=== PATIENT | female | born 1965 | race African-American/Black ===

== ENCOUNTER 2017-03-27 22:43 | Emergency (ER) | payer OTHER ==
[2017-03-27 22:51] VITALS: TEMP 98; BMI 40.3
--- NOTE | 2017-03-28 01:37 | PDOC ---
History of Present Illness - General History Source: Patient, Spouse Exam Limitations: No Limitations - History of Present Illness Initial Comments: 03/28/17 01:45 EDT The patient is a 51 year old female, with a significant past medical history of hypertension, diabetes, and hydronephrosis, who presents to the emergency with right leg and knee pain for approximately 2 weeks. The patient reports right leg pain is localized to the knee/thigh, and describes it as crampy in nature. The patient reports mild leg pain when sitting down, but when she gets up she reports her pain is exacerbated. She denies any associated chest pain, shortness of breath, diaphoresis, or palpitations. Patient reports mild right ear pain, but denies any fever, chills, cough, headache, or dizziness. Patient reports visiting her PCP 1 week ago, where she had bloodwork done, which only revealed elevated blood sugar, which she states typically runs high. Patient reports she is compliant with her medications. She denies any abdominal pain, nausea, vomiting, diarrhea, or constipation. She denies any dysuria, hematuria, frequency, or urgency. She denies any recent travel or sick contacts. Allergies: NKDA Past Surgical History: Cardiac Surgery Social History: Non smoker. No ETOH or recreational drug use. PCP: Dr. Miranda <Beatriz Prather - Last Filed: 03/28/17 05:27> <Nguyen Bronson - Last Filed: 03/28/17 06:47> - General Chief Complaint: Pain Stated Complaint: LEG/EAR PAIN Time Seen by Provider: 03/28/17 01:13 EDT Past History <Beatriz Prather - Last Filed: 03/28/17 05:27> - Past Medical History Anemia: No Asthma: No Cancer: No Cardiac Disorders: Yes (CHEST PAIN) CVA: No COPD: No CHF: No Dementia: No Diabetes: Yes GI Disorders: No Disorders: Yes (RT HYDRONEPHROSIS) HTN: Yes Hypercholesterolemia: No Liver Disease: No Seizures: No Thyroid Disease: No - Surgical History Cardiac Surgery: Yes - Suicide/Smoking/Psychosocial Hx Smoking History: Never smoked Hx Alcohol Use: No Drug/Substance Use Hx: No Substance Use Type: None <Nguyen Bronson - Last Filed: 03/28/17 06:47> - Past Medical History Allergies/Adverse Reactions: Allergies Allergy/AdvReac Type Severity Reaction Status Date / Time No Known Allergies Allergy Verified 03/27/17 22:50 Home Medications: Ambulatory Orders Amlodipine Besylate [Norvasc -] 10 mg PO DAILY 11/23/15 Hydrochlorothiazide [Hctz -] 50 mg PO DAILY 11/23/15 Metformin HCl [Metformin HCl ER] 1,000 mg PO BID 11/23/15 Gabapentin [Neurontin] 100 mg PO TID 03/28/17 Glipizide [Glipizide ER] 10 mg PO DAILY 03/28/17 Review of Systems - Review of Systems Able to Perform ROS?: Yes Comments:: 03/28/17 01:45 EDT GENERAL/CONSTITUTIONAL: No fever or chills. No weakness. HEAD, EYES, EARS, NOSE AND THROAT: Yes right ear pain. No change in vision. No ear discharge. No sore throat. CARDIOVASCULAR: No chest pain or shortness of breath. RESPIRATORY: No cough, wheezing, or hemoptysis. GASTROINTESTINAL: No nausea, vomiting, diarrhea or constipation. GENITOURINARY: No dysuria, frequency, or change in urination. MUSCULOSKELETAL: Yes right leg(thigh)/knee pain. No other joint or muscle swelling or pain. No neck or back pain. SKIN: No rash NEUROLOGIC: No headache, vertigo, loss of consciousness, or change in strength/ sensation. ENDOCRINE: No increased thirst. No abnormal weight change. HEMATOLOGIC/LYMPHATIC: No anemia, easy bleeding, or history of blood clots. ALLERGIC/IMMUNOLOGIC: No hives or skin allergy. <Elizabeth Pratheromdarwin - Last Filed: 03/28/17 05:27> *Physical Exam - Vital Signs Last Vital Signs Temp Pulse Resp BP Pulse Ox 98 F 120 H 20 144/76 99 03/27/17 22:48 03/27/17 22:48 03/27/17 22:48 03/27/17 22:48 03/27/17 22:48 - Physical Exam Comments: 03/28/17 01:46 EDT GENERAL: Awake, alert, and fully oriented, in no acute distress. Morbidly obese. HEAD: No signs of trauma EYES: PERRLA, EOMI, sclera anicteric, conjunctiva clear ENT: Auricles normal inspection, hearing grossly normal, nares patent, oropharynx clear without exudates. Moist mucosa NECK: Normal ROM, supple, no lymphadenopathy, JVD, or masses LUNGS: Breath sounds equal, clear to auscultation bilaterally. No wheezes, and no crackles HEART: Tachycardic to 120. Regular rhythm, normal S1 and S2, no murmurs, rubs or gallops ABDOMEN: Soft, nontender, normoactive bowel sounds. No guarding, no rebound. No masses EXTREMITIES: Good popliteal/pedal pulses. No pitting edema in the right lower extremity compared to left. Normal range of motion, no edema. No clubbing or cyanosis. No cords, erythema, or tenderness NEUROLOGICAL: Cranial nerves II through XII grossly intact. Normal speech, normal gait SKIN: Warm, Dry, normal turgor, no rashes or lesions noted. <Beatriz Prather - Last Filed: 03/28/17 05:27> - Vital Signs Last Vital Signs Temp Pulse Resp BP Pulse Ox 98 F 120 H 20 144/76 99 03/27/17 22:48 03/27/17 22:48 03/27/17 22:48 03/27/17 22:48 03/27/17 22:48 <Nguyen Bronson - Last Filed: 03/28/17 06:47> ED Treatment Course - LABORATORY CBC & Chemistry Diagram: 03/28/17 01:33 EST 03/28/17 01:33 EST - RADIOLOGY Radiograph Interpretation: 03/28/17 05:27 EXAM: CT Abdomen and Pelvis INTERPRETED BY: Dr. Lewis REVIEWED BY: Dr. Bronson IMPRESSION: No aortic dissection or aneurysm. Minimal right hydronephrosis and proximal hydroureter, question occult ureteral stone or a variant of chronic UPJ obstruction. No bowel obstruction, colitis, diverticulitis, free fluid or free air. Normal appendix. Unremarkable pancreas and gallbladder. Diastasis recti and small shallow superimposed umbilical hernia containing fat. <Beatriz Prather - Last Filed: 03/28/17 05:27> - LABORATORY CBC & Chemistry Diagram: 03/28/17 01:33 EST 03/28/17 01:33 EST <Nguyen Bronson - Last Filed: 03/28/17 06:47> Medical Decision Making - Medical Decision Making 03/28/17 01:43 EST Patient Name: SARAHI VICKERS THIS IS A PRELIMINARY REPORT FROM [facility] DATE OF SERVICE: 2017-03-28 01:37:22 IMAGES: 21 EXAM: VENOUS DUPLEX UNILATERAL No evidence for DVT right lower extremity. THIS DOCUMENT HAS BEEN ELECTRONICALLY SIGNED 03/28/17 06:44 Patient Name: SARAHI VICKERS THIS IS A PRELIMINARY REPORT FROM [facility] DATE OF SERVICE: 2017-03-28 04:18:15 IMAGES: 981 EXAM: CT ABDOMEN AND PELVIS WITH CONTRAST and CT CHEST WITH CONTRAST CHEST No pulmonary embolism. No aortic dissection or aneurysm. No pneumonia or pleural effusions. ABDOMEN/PELVIS No aortic dissection or aneurysm. MInimal right hydronephrosis and proximal hydroureter, question occult ureteral stone or a variant of chronic UPJ obstruction. No bowel obstruction, colitis, diverticulitis, free fluid or free air. Normal appendix. Unremarkable pancreas and gallbladder. Diastasis recti and small shallow superimposed umbilical hernia containing fat. THIS DOCUMENT HAS BEEN ELECTRONICALLY SIGNED 03/28/17 06:46 Pt had a abd pelvis and chest CTA to r/o dissection, as she had widely varying BP on both sides of her body. BP was 160 systolic in one arm and 120 systolic on the other arm <Nguyen Bronson - Last Filed: 03/28/17 06:47> *DC/Admit/Observation/Transfer - Attestations Scribe Attestion: 03/28/17 01:46 EDT Documentation prepared by Beatriz Prather, acting as medical field representative for Nguyen Bronson MD. <Beatriz Prather - Last Filed: 03/28/17 05:27> - Discharge Dispostion Admit: No <Nguyen Bronson - Last Filed: 03/28/17 06:47> Diagnosis at time of Disposition: Tachycardia - Discharge Dispostion Disposition: HOME Condition at time of disposition: Stable - Referrals Referrals: Roel Miranda MD [Primary Care Provider] - Odell Byrd MD [Staff Physician] - - Patient Instructions Printed Discharge Instructions: Tachycardia - Post Discharge Activity Forms/Work/School Notes: Parent(s) Back to Work Note
[2017-03-28 01:43] LABS: BASOPHIL 0.6 % (0-2.0); EOSINOPHIL 0.7 % (0-4.5); MCH 25.9 pg (25.7-33.7); MCHC 32.1 g/dl (32.0-36.0); MEAN CELL VOLUME 80.7 fl (80-96); NEUTROPHILS 54.5 % (42.8-82.8); PLATELET COUNT 259 K/MM3 (134-434); RDW 14.5 % (11.6-15.6); WHITE BLOOD COUNT 6.6 K/mm3 (4.0-10.0)
[2017-03-28 01:46] LABS: URINE APPEARANCE CLOUDY; URINE BILIRUBIN NEGATIVE (NEGATIVE); URINE BLOOD 3+ (NEGATIVE); URINE COLOR RED; URINE GLUCOSE (UA) 3+ (NEGATIVE); URINE KETONE TRACE (NEGATIVE); URINE NITRITE NEGATIVE (NEGATIVE); URINE UROBILINOGEN NEGATIVE mg/dL (0.2-1.0)
[2017-03-28] MEDS ORDERED: amLODIPine BESYLATE 10 MG TABLET (FP) PO ONE (01:52)
[2017-03-28] MEDS ORDERED: VALSARTAN 40 MG TABLET (FP) PO ONE (01:52)
[2017-03-28 01:56] LABS: URINE PROTEIN 2+ (NEGATIVE)
[2017-03-28] MEDS ORDERED: amLODIPine BESYLATE 5 MG TABLET (FP) ONE (01:59)
[2017-03-28 02:03] LABS: CALCIUM OXALATE CRYSTALS RARE /hpf (NONE SEEN); URINE BACTERIA FEW /hpf (NONE SEEN); URINE RBC 63; URINE WBC 427
[2017-03-28 02:15] LABS: ALBUMIN 3.7 g/dl (3.4-5.0); ANION GAP 12 (8-16); BILIRUBIN,TOTAL 0.3 mg/dL (0.2-1.0); CALCIUM 9.7 mg/dL (8.5-10.1); CO2 25 mmol/L (21-32); CREATININE 0.8 mg/dL (0.55-1.02); GLUCOSE,RANDOM 245 mg/dL (74-106); SGOT/AST 12 U/L (15-37); SGPT/ALT 16 U/L (12-78)
[2017-03-28 02:16] LABS: ALK PHOS 139 U/L (45-117)
[2017-03-28] MEDS ORDERED: SODIUM CHLORIDE 0.9% 500 ML INFUS.BAG IV ONE (02:29)
[2017-03-28] MEDS ORDERED: NITROFURANTOIN MACROCRYSTAL 50 MG CAPSULE (FP) PO SCH (02:30)
[2017-03-28] MEDS ORDERED: NITROFURANTOIN MACROCRYSTAL 50 MG CAPSULE (FP) ONE (02:47)
[2017-03-28 06:19] VITALS: BP 133/71; PULSE 101
[2017-03-28 11:29] LABS: URINE LEUK ESTERASE Negative (NEGATIVE)
== END 2017-03-28 06:20 | disposition home or self-care (01) ==
LOC: JER 22:43
DX: R00.0 Tachycardia, unspecified (principal); I10 Essential (primary) hypertension; E11.9 Type 2 diabetes mellitus without complications; Z79.84 Long term (current) use of oral hypoglycemic drugs; N13.30 Unspecified hydronephrosis
CPT/HCPCS: 36415; 71275-TC; 74177-TC; 80053; 81003; 81015; 84703; 85025; 93971-TC; 99281-25; 99282-25

== ENCOUNTER 2019-02-19 22:14 | Emergency (ER) | payer OTHER ==
[2019-02-19 22:22] VITALS: BMI 42.3
[2019-02-19] MEDS ORDERED: SODIUM CHLORIDE 1,000 ML IV STA (23:07)
[2019-02-19] MEDS ORDERED: ACETAMINOPHEN 1000 MG/100 ML VIAL (NON FORMULARY) IVPB ONE (23:07)
[2019-02-19] MEDS ORDERED: ACETAMINOPHEN INJECTION 100 ML IVPB ONE (23:19)
--- NOTE | 2019-02-19 23:49 | PDOC ---
History of Present Illness - General Chief Complaint: Pain Stated Complaint: SHIVERING/BODY PAIN Time Seen by Provider: 02/19/19 22:36 History Source: Patient, Family (daughter) Exam Limitations: Language Barrier (translation through daughter) - History of Present Illness Initial Comments: 02/19/19 23:43 53 yo F PMH HTN, HLD, NIDDM, presenting with diffuse body aches. Translation per daughter. States that she has been having diffuse body aches for the past week. Associated with chills at home. However, has not been having any N/V, CP, SOB, constipation/diarrhea. Notes that she had a CT scan through her primary care physician 2 weeks ago, and has a follow up appointment this upcoming week. Endorses chronic low back pain. Past History - Past Medical History Allergies/Adverse Reactions: Allergies Allergy/AdvReac Type Severity Reaction Status Date / Time No Known Allergies Allergy Verified 03/27/17 22:50 Home Medications: Ambulatory Orders Amlodipine Besylate [Norvasc -] 10 mg PO DAILY 11/23/15 Hydrochlorothiazide [Hctz -] 50 mg PO DAILY 11/23/15 metFORMIN HCL [Metformin ER Osmotic] 1,000 mg PO BID 11/23/15 Gabapentin [Neurontin] 100 mg PO TID 03/28/17 Glipizide [Glipizide ER] 10 mg PO DAILY 03/28/17 Acetaminophen [Tylenol] 325 mg PO QID PRN #30 capsule 02/20/19 Ibuprofen 200 mg PO QID PRN #30 tablet 02/20/19 Anemia: No Asthma: No Cancer: No Cardiac Disorders: Yes (CHEST PAIN) CVA: No COPD: No CHF: No Dementia: No Diabetes: Yes GI Disorders: No Disorders: Yes (RT HYDRONEPHROSIS) HTN: Yes Hypercholesterolemia: No Liver Disease: No Seizures: No Thyroid Disease: No - Surgical History Cardiac Surgery: Yes - Psycho Social/Smoking Cessation Hx Smoking History: Never smoked Hx Alcohol Use: No Drug/Substance Use Hx: No Substance Use Type: None Review of Systems - Review of Systems Constitutional: Yes: Chills. No: Diaphoresis, Fever, Weakness HEENTM: No: Blurred Vision, Hearing Loss, Difficulty Swallowing Respiratory: No: Cough, Shortness of Breath Cardiac (ROS): No: Chest Pain, Irregular Heart Rate ABD/GI: No: Constipated, Diarrhea, Nausea, Vomiting : No: Burning, Dysuria, Discharge, Frequency, Flank Pain Musculoskeletal: Yes: Back Pain, Muscle Pain Integumentary: No: Bruising Neurological: No: Headache, Numbness, Tingling *Physical Exam - Vital Signs Last Vital Signs Temp Pulse Resp BP Pulse Ox 98.2 F 125 H 19 110/67 96 02/19/19 22:18 02/19/19 22:18 02/19/19 22:18 02/19/19 22:18 02/19/19 22:18 - Physical Exam Comments: 02/19/19 23:51 Gen: well-developed, well-nourished, mild distress HEENT: atraumatic, normocephalic Neck: trachea midline, supple CV: tachycardic, regular rhythm Pulm: CTA b/l Abd: soft, non-distended, non-tender MSK: full ROM, 2+ pulses Extr: no edema, no deformities Skin: warm, dry Neuro: AAOX4, EOMI, CN II-XII intact ED Treatment Course - LABORATORY CBC & Chemistry Diagram: 02/19/19 23:40 02/19/19 23:40 - ADDITIONAL ORDERS Additional order review: Laboratory Results 02/19/19 23:30 POC Glucometer 224 02/19/19 23:30 POC Glucometer 224 - Medications Given in the ED: ED Medications Discontinued Medications Generic Name Dose Route Start Last Admin Trade Name Jorge PRN Reason Stop Dose Admin Acetaminophen 1,000 mg 02/19/19 23:07 02/19/19 23:33 Ofirmev Injection - IVPB 02/19/19 23:08 1,000 mg ONCE ONE Administration Medical Decision Making - Medical Decision Making 02/20/19 00:01 53 yo F with diffuse body aches and aching abdominal pain. - will give Ofirmev for pain - 1L NS for tachycardia - CBC, CMP - UA/UC - ctm 02/20/19 00:48 Patient reassessed, states that she feels better. No longer tachycardic. Plan to dc to follow up with her primary care doctor. 02/20/19 01:26 HR in 80s, will dc. Discharge - Discharge Information Problems reviewed: Yes Clinical Impression/Diagnosis: Abdominal pain Condition: Improved Disposition: HOME - Admission No - Additional Discharge Information Prescriptions: Acetaminophen [Tylenol] 325 mg PO QID PRN #30 capsule PRN Reason: pain Ibuprofen 200 mg PO QID PRN #30 tablet PRN Reason: Pain - Follow up/Referral - Patient Discharge Instructions Patient Printed Discharge Instructions: DI for Viral Syndrome, DI for Abdominal Pain-Adult Additional Instructions: You were seen with diffuse body aches and abdominal pain. You felt better after medication, and your fast heart rate got better with fluids. You likely have a viral infection. Make sure you drink plenty of fluids. Follow up with your primary care doctor, and make sure you find out what your CT scan results are. Return to the ED if you develop worsening abdominal pain or vomiting. - Post Discharge Activity
[2019-02-19 23:51] LABS: BASO % 0.4 % (0-2.0); HEMATOCRIT 37.8 % (32.4-45.2); HEMOGLOBIN 12.2 GM/dL (10.7-15.3); MCH 26.7 pg (25.7-33.7); MCHC 32.3 g/dl (32.0-36.0); MEAN CELL VOLUME 82.7 fl (80-96); MEAN PLT VOLUME 9.4 fl (7.5-11.1); MONO % 11.9 % (3.8-10.2); NEUT % 67.7 % (42.8-82.8); PLATELET COUNT 226 K/MM3 (134-434); RBC 4.58 M/mm3 (3.60-5.2); RDW 14.1 % (11.6-15.6); WHITE BLOOD COUNT 3.3 K/mm3 (4.0-10.0)
[2019-02-20 00:21] LABS: ALBUMIN 3.8 g/dl (3.4-5.0); BILIRUBIN,TOTAL 0.3 mg/dL (0.2-1); BLOOD UREA NITROGEN 14.5 mg/dL (7-18); CALCIUM 9.1 mg/dL (8.5-10.1); CREATININE 0.9 mg/dL (0.55-1.3); POTASSIUM 4.3 mmol/L (3.5-5.1)
[2019-02-20 00:29] LABS: PH,URINE 5.5 (5.0-8.0); URINE APPEARANCE CLEAR; URINE BILIRUBIN NEGATIVE (NEGATIVE); URINE COLOR YELLOW; URINE GLUCOSE (UA) 1+ (NEGATIVE); URINE KETONE NEGATIVE (NEGATIVE); URINE LEUK ESTERASE NEGATIVE (NEGATIVE); URINE NITRITE NEGATIVE (NEGATIVE); URINE PROTEIN TRACE (NEGATIVE); URINE UROBILINOGEN 0.2 mg/dL (0.2-1.0)
--- NOTE | 2019-02-20 01:13 | PDOC ---
Documentation entered by Fran Patel SCRIBE, acting as scribe for Lisa Moss MD. Lisa Moss MD: This documentation has been prepared by the Amanda avila Nirvannie, SCRIBE, under my direction and personally reviewed by me in its entirety. I confirm that the documentation accurately reflects all work, treatment, procedures, and medical decision making performed by me. Attending Attestation - Resident Resident Name: Varghese Guerra - ED Attending Attestation I have performed the following: I have examined & evaluated the patient, The case was reviewed & discussed with the resident, I agree w/resident's findings & plan - HPI HPI: 02/19/19 23:02 The patient is a 53 year old female, with a significant past medical history of hypertension, diabetes, and hydronephrosis, who presents to the emergency department with, diffuse body aches, weakness, and low back pain (chronic). She notes chronic abdominal pain (recent CT abdomen 2 weeks ago pending results 02/22 ). She denies recent fevers, chills, headache or dizziness. She denies recent nausea, vomit, diarrhea or constipation. She denies recent dysuria, frequency, urgency or hematuria. She denies recent chest pain or shortness of breath. Allergies: NKDA Primary Care Physician: [facility]. - Physicial Exam PE: 02/19/19 23:05 GENERAL: Well-appearing, well-nourished. No apparent distress. HEENT: Normocephalic, atraumatic. PERRL, EOM intact. CARDIOVASCULAR: Normal S1, S2. Regular rate and rhythm. PULMONARY: Clear to auscultation bilaterally. ABDOMEN: +Protuberant. Soft, non-distended, non-tender. BACK: +Back pain L5-S1. EXTREMITIES: Normal ROM in all four extremities. No gross deformities. SKIN: Warm, dry. No rash NEUROLOGICAL: No focal neurological deficits. - Medical Decision Making 02/20/19 00:12 53-year-old female with past medical history of [id number] diabetes, hypertension, low back pain, intermittent chronic abdominal pain presents with several complaints 1-she has had intermittent abdominal pain and had a CAT scan of her abdomen and pelvis at [facility] 2 weeks ago and has a follow-up appointment this Wednesday 2-has complaint of muscle and joint pain that is diffuse 3-she has chronic low back pain and has been given a Elavil prescription that she states does not helped 02/20/19 00:17 4- complaint of chills for past week 02/20/19 00:38 UA negative , no infection cbc unremarkable chemistries glu elevated but twin has h/o NIDDM 02/20/19 00:55 pt feels much better,no longer tachycardic after fluids and already has an appt w PCP on Wed
[2019-02-20 01:41] VITALS: BP 128/78; TEMP 98.5
[2019-02-20 01:42] VITALS: PULSE 100
== END 2019-02-20 01:53 | disposition home or self-care (01) ==
LOC: JER 22:14
PROC: 3E033NZ Introduction of Analgesics, Hypnotics, Sedatives into Peripheral Vein, Percutaneous Approach (ICD-10-PCS; principal; 2019-02-19)
DX: R10.9 Unspecified abdominal pain (principal); I10 Essential (primary) hypertension; E11.9 Type 2 diabetes mellitus without complications; Z79.84 Long term (current) use of oral hypoglycemic drugs; E78.5 Hyperlipidemia, unspecified; N13.30 Unspecified hydronephrosis
CPT/HCPCS: 36415; 80053; 81003; 82962; 85025; 87086; 96374; 99284-25; J0131; J7030

== ENCOUNTER 2021-10-05 18:58 | Emergency (ER) | payer OTHER ==
[2021-10-05 19:29] VITALS: BP 141/84; TEMP 98.9; BMI 34.9
[2021-10-05] MEDS ORDERED: SODIUM CHLORIDE 0.9% 500 ML INFUS.BAG IV ONE ×2 (21:12→22:10)
[2021-10-05 21:40] LABS: BASO % 0.4 % (0-2.0); EOS % 0.3 % (0-4.5); HEMATOCRIT 37.7 % (32.4-45.2); HEMOGLOBIN 12.1 GM/dL (10.7-15.3); MCH 25.8 pg (25.7-33.7); MCHC 32.1 g/dl (32.0-36.0); MEAN CELL VOLUME 80.3 fl (80-96); MEAN PLT VOLUME 8.2 fl (7.5-11.1); MONO % 5.5 % (3.8-10.2); NEUT % 61.8 % (42.8-82.8); PLATELET COUNT 279 10^3/uL (134-434); RBC 4.69 M/mm3 (3.60-5.2); RDW 14.3 % (11.6-15.6); WHITE BLOOD COUNT 5.5 K/mm3 (4.0-10.0)
[2021-10-05 21:51] LABS: INR 0.91 (0.83-1.09); PROTHROMBIN TIME (PATIENT) 10.5 SEC (9.7-13.0)
[2021-10-05 21:53] LABS: ACTIVATED PTT 30.1 SECONDS (25.2-36.5)
[2021-10-05 21:55] LABS: ALBUMIN 3.8 g/dl (3.4-5.0); BLOOD UREA NITROGEN 11.2 mg/dL (7-18); CALCIUM 10.2 mg/dL (8.5-10.1); MAGNESIUM 1.7 mg/dL (1.8-2.4)
[2021-10-05 21:58] LABS: CREATININE 1.1 mg/dL (0.55-1.3)
[2021-10-05 22:00] LABS: BILIRUBIN,TOTAL 0.2 mg/dL (0.2-1)
[2021-10-06 00:56] VITALS: PULSE 74
== END 2021-10-06 00:58 | disposition home or self-care (01) ==
LOC: JER 18:58
DX: R07.9 Chest pain, unspecified (principal)
CPT/HCPCS: 0241U-QW; 36415; 71046-TC-FY; 80053; 83735; 84443; 84484; 85025; 85379; 85610; 85730; 93005; 93010; 99284-25

== ENCOUNTER 2023-07-08 12:33 | Emergency (ER) | payer OTHER ==
[2023-07-08 12:42] VITALS: TEMP 99; BMI 43.2
[2023-07-08] MEDS: ACETAMINOPHEN 1000 MG/100 ML BAG IVPB ONE (14:53)
[2023-07-08] MEDS ORDERED: ACETAMINOPHEN INJECTION 100 ML IVPB ONE (14:54)
[2023-07-08 15:11] LABS: BASO % 0.3 % (0-2.0); EOS % 1.5 % (0-4.5); HEMATOCRIT 38.2 % (32.4-45.2); HEMOGLOBIN 12.5 GM/dL (10.7-15.3); LYMPH % 11.4 % (8-40); MCH 26.4 pg (25.7-33.7); MCHC 32.8 g/dl (32.0-36.0); MEAN CELL VOLUME 80.6 fl (80-96); MEAN PLT VOLUME 8.2 fl (7.5-11.1); MONO % 8.7 % (3.8-10.2); NEUT % 78.1 % (42.8-82.8); PLATELET COUNT 268 10^3/uL (134-434); RBC 4.74 M/mm3 (3.60-5.2); RDW 14.5 % (11.6-15.6)
[2023-07-08 15:21] LABS: INR 1.01 (0.83-1.09); PROTHROMBIN TIME (PATIENT) 11.7 SEC (9.7-13.0)
[2023-07-08 15:24] LABS: ACTIVATED PTT 28.7 SECONDS (25.2-36.5)
[2023-07-08 15:35] LABS: POTASSIUM 3.9 mmol/L (3.5-5.1)
[2023-07-08 15:37] LABS: BLOOD UREA NITROGEN 10.4 mg/dL (7-18); CALCIUM 10.5 mg/dL (8.5-10.1)
[2023-07-08 15:38] LABS: ALBUMIN 3.9 g/dl (3.4-5.0)
[2023-07-08 15:40] LABS: CREATININE 0.8 mg/dL (0.55-1.3)
[2023-07-08 15:42] LABS: BILIRUBIN,TOTAL 0.5 mg/dL (0.2-1); TOT PROT 8.6 g/dl (6.4-8.2)
[2023-07-08] MEDS: SODIUM CHLORIDE 1,000 ML IV STA (16:35)
[2023-07-08 16:42] VITALS: BP 151/68; PULSE 109; RESP 19
== END 2023-07-08 18:19 | disposition home or self-care (01) ==
LOC: JER 12:33
PROC: 3E033NZ Introduction of Analgesics, Hypnotics, Sedatives into Peripheral Vein, Percutaneous Approach (ICD-10-PCS; principal; 2023-07-08)
PROC: 3E0337Z Introduction of Electrolytic and Water Balance Substance into Peripheral Vein, Percutaneous Approach (ICD-10-PCS; 2023-07-08)
DX: R07.9 Chest pain, unspecified (principal); R05.9 Cough, unspecified; M54.9 Dorsalgia, unspecified; R10.9 Unspecified abdominal pain; J11.1 Influenza due to unidentified influenza virus with other respiratory manifestations; Z20.822 Contact with and (suspected) exposure to COVID-19
CPT/HCPCS: 0241U-QW; 36415; 71046-TC-FY; 80053; 84443; 84484; 85025; 85379; 85610; 85730; 86850; 86900; 86901; 93005; 93010; 99285-25; J0131